=== PATIENT | female | born 1955 | race Caucasian/White ===

== ENCOUNTER 2022-04-19 09:43 | Outpatient (CLI) | payer OTHER, SELFPAY | END 2022-04-19 09:44 | disposition home or self-care (01) | LOC: INJ CL 09:44 | PROVIDERS: PCP Family Medicine; Visit Provider Family Medicine | DX: M54.16 Radiculopathy, lumbar region (principal); M51.36 Other intervertebral disc degeneration, lumbar region | CPT/HCPCS: 62323; J0702; Q9966 ==

== ENCOUNTER 2022-05-21 08:30 | Outpatient (RCR) | payer OTHER, SELFPAY | END 2022-08-27 14:32 | disposition home or self-care (01) | PROVIDERS: PCP Family Medicine; Visit Provider Family Medicine | DX: M25.562 Pain in left knee (principal); M70.62 Trochanteric bursitis, left hip; Z51.89 Encounter for other specified aftercare | CPT/HCPCS: 97110; 97112; 97140; 97530 ==

== ENCOUNTER 2022-06-14 08:31 | Outpatient (CLI) | payer OTHER, SELFPAY | END 2022-06-14 08:32 | disposition home or self-care (01) | PROVIDERS: PCP Family Medicine; Visit Provider Family Medicine | DX: M54.16 Radiculopathy, lumbar region (principal); M51.26 Other intervertebral disc displacement, lumbar region | CPT/HCPCS: 64483; J1100; Q9966 ==

== ENCOUNTER 2023-04-09 09:15 | Outpatient (RCR) | payer MEDICARE, BC, SELFPAY | END 2023-04-09 10:16 | disposition home or self-care (01) | PROVIDERS: PCP Family Medicine; Visit Provider Family Medicine | DX: M54.16 Radiculopathy, lumbar region (principal); M54.50 Low back pain, unspecified; M62.81 Muscle weakness (generalized); Z51.89 Encounter for other specified aftercare | CPT/HCPCS: 97110; 97161 ==

== ENCOUNTER 2023-10-22 07:12 | Outpatient (CLI) | payer MEDICARE, BC, SELFPAY ==
--- NOTE | 2023-10-22 07:15 | MR_ITS ---
[address] [address] Phone:?[phone] Fax:?[phone] Referring Physician Information: Norman Crowe M.D. [id number] [address] Phone:?[phone] Fax:?[phone] Patient:Violetta Hernandez D.O.B:?1955 Sex:?Female Phone:? [facility] MRN:?[id number] Exam Date:?10/22/2023 EXAM: MRI EXAMINATION OF THE RIGHT SHOULDER CLINICAL INFORMATION: Right shoulder pain. No history of surgery to this area. Evaluate rotator cuff tear. TECHNICAL INFORMATION: Coronal STIR as well as axial, sagittal and coronal PD and T2-weighted images acquired. No prior studies for comparison. INTERPRETATION: Bones: There is no Hill-Sachs impaction deformity. No other evidence for an occult fracture or osseous contusion. No other bone marrow edema pattern. Rotator Cuff: The supraspinatus tendon is intact without significant tendinopathy, and without tear or tendon retraction. The infraspinatus tendon is intact without tear or significant tendinopathy. The teres minor tendon is intact. The subscapularis tendon is intact. No appreciable rotator cuff muscle belly atrophy. Coracoacromial arch: There is no discrete subacromial osseous spur. The bony acromiohumeral interval is measuring 8 to 9 mm. There is no thickening identified of the coracoacromial ligament. Acromioclavicular joint: Mild/early AC joint DJD. No deformity of the underlying supraspinatus tendon. Minimal edema signal within the subacromial/subdeltoid bursa areas. Biceps tendon: The long head biceps tendon is intact and nondisplaced from the bicipital groove. No evidence for a tendon tear or any appreciable changes of tendinopathy. No evidence for tenosynovitis. Glenohumeral joint and labrum: No significant glenohumeral joint effusion. No discrete loose body within the joint. Osteochondral surfaces appear relatively preserved. No discrete SLAP tear. No other definite evidence for labral tear. There is no evidence for a paralabral cyst. There is abnormal thickening and signal heterogeneity of the inferior glenohumeral capsule, with adjacent changes of soft tissue edema signal. There is some apparent soft tissue thickening in the area of the rotator cuff interval. CONCLUSION: 1. MRI findings as would be in keeping with adhesive capsulitis, and please correlate clinically. 2. No evidence for a rotator cuff tendon tear or any appreciable tendinopathy. 3. Early AC joint DJD without abnormal narrowing of the acromiohumeral interval. Minimal subacromial/subdeltoid bursal inflammation. 4. Unremarkable and intact long head biceps tendon. 5. No appreciable glenohumeral osteoarthritis. KES Electronically signed on 10/22/2023 1:19:00 PM by Moody Chamorro M.D.
== END 2023-10-22 07:13 | disposition home or self-care (01) ==
LOC: MRI 07:12
PROVIDERS: PCP Family Medicine; Visit Provider Orthopaedic Surgery
DX: M25.511 Pain in right shoulder (principal); M75.01 Adhesive capsulitis of right shoulder; M75.51 Bursitis of right shoulder
CPT/HCPCS: 73221

== ENCOUNTER 2024-01-07 11:15 | Outpatient (RCR) | payer MEDICARE, BC, SELFPAY ==
--- NOTE | 2023-11-05 13:04 | PT.OPEX ---
PT [place] Outpatient Eval PT [facility] Outpatient Eval Start: 11/05/23 07:43 Freq: Status: Active Protocol: Document 11/05/23 07:44 ENM (Rec: 11/05/23 09:57 ENM [id number]) E-signed By Pinky Lynn, DPT Physical Therapy Outpatient Evaluation Insurance Information Recert Due Date 01/28/24 Insurance Name Medicare B Medical Diagnosis right shoulder pain Treating Diagnosis right arm pain, decreased shoulder ROM, decreased shoulder strength Referring MD Crowe Subjective Subjective Patient presents to PT for complaint of right shoulder pain. With certain movements it will shoot pain down her arm. Notices no discomfort with reaching forward or overhead. Will have the most discomfort sleeping on her side, reaching behind the back or twisting the arm up overhead. With getting her shirt off she has to do it slowly so it doesn't hurt her. Xray: These show no glenohumeral joint space narrowing or osteophytic spurring. No proximal migration of the humeral head. No obvious fracture or pathologic lesion. MRI of the right shoulder dated 10/22/2023 from [facility] shows the rotator cuff is intact. There is no subacromial/subdeltoid bursitis. There is some thickening and increased signal of the inferior glenohumeral ligaments and rotator interval, consistent with adhesive capsulitis. When it started: 3 months Describes it as: sharp when present Timing: randomly with movements Location: lateral shoulder sometimes in her triceps Irritability: high Severity: mod Pain Comments at its best: none at rest at its worse: 8-9/10 easing: ibuprofen aggravating: sleeping on her side, reaching behind the back Current Work Status Retired Objective Other/Pertinent Objective Shoulder AROM: Shoulder flexion: L 170 R 160 (soreness at end range) Abduction: L 173 R 172 ( soreness at end range) IR: L T7 R T10 right where pain starts ER: T3 B PROM Flexion R 150 + for pain Abduction R 165 IR at zero abduction L 68 R0 43 ER at zero abduction L 65 R 50 (at 90 degs L 61 R 45) supine HBH L 2 fingertips from acromion R 4 fingertips Strength: Shoulder flexion: 5/5 B Shoulder abduction: 4+/5 B Shoulder IR0: 5/5 B Shoulder ER0: L 4+/5 R 4-/5 ER at 90 L 4+/5 R 4-/5 IR at 90 4+/5 B Palpation/joint mobility: Posterior glide of GHJ: normal B Inferior glide of GHJ: normal B + for pain with palpation of supraspinatus and biceps tendon, ++ for pain at Tricep Special tests: neers + gauri cosby - Functional Test Performed & Score SPADI: pain 23/50 46% disability 18/80 22.5% 41/130 Assessment Assessment/Impression Patient is a 68 year old female presenting with 3+ month history of right shoulder pain. Their primary complaint is of lateral and posterior pain with quick movements such as reaching behind or rotating overhead. The pain has not changed in any way and is starting to make daily and recreational activities more difficult. Imaging was negative for fracture, rotator cuff tear but showed possible adhesive capsulitis. Upon assessment patients concordant pains brought on with active and passive shoulder IR and ER with limitations in both movements. Joint mobilizations were normal with equal mobility bilaterally. She displays weakness in external rotators compared to contralateral side . Special testing + for neers test. Patient most tender to palpation along triceps musculature. Due to degree of external rotation loss symptoms seem to be more likely early stage of frozen shoulder but with likely some subacromial pain syndrome symptoms as well. Keena would greatly benefit from skilled PT to address impairments stated above in order to perform all functional mobility and household duties without significant discomfort or difficulty. Primary Functional Limitations reaching behind the back, abd with ER positioning, playing pickleball, playing with her grandkids Plan of Care Rehabilitation Potential Fair Rehabilitation Potential Comments good-fair Physical Therapy Goals In 6-8 visits: 1. Patient will be IND with HEP and self management of symptoms 2. Patient will display an improvement in passive pain free shoulder IR and ER of 5 degs to improve ability for self cares/ADLS 3. Patient will display improved right shoulder ER strength to at least 4+/5 for return to recreational activities without significant difficulty 5. Patient will improve SPADI from 41 to 28 (MDC 13) to demonstrate improvements in QOL Coordination/Communication With Referral Source Treatment Plan/Direct Interventions Electrical Stimulation,Heat, Ice/Cold/Vasopneumatic,Joint Mobilization,Manual Therapy, Neuromuscular Re-ed,Self-Care/ Home Management,Therapeutic Activities,Therapeutic Exercises Frequency/Duration 1x a week for 6-8 weeks, as needed for 2-3 visits Patient Will Be Discharged From Therapy Completion of LTG(s), Independent w/HEP Evaluation Billing Untimed Code Treatment Minutes 36 Complexity Low Certification Information Initial Certification Date 11/05/23 Ending Certification Date 01/28/24 Provider Signature Shows Agreement With POC & Medical Necessity Physician Signature & Date Requested Please Sign/Date Here Physician Comment/Change : Physician NPI Number #
== END 2024-05-06 23:59 | disposition home or self-care (01) ==
PROVIDERS: PCP Family Medicine; Visit Provider Orthopaedic Surgery
DX: M25.511 Pain in right shoulder (principal); M79.601 Pain in right arm; Z74.09 Other reduced mobility; M75.01 Adhesive capsulitis of right shoulder; M75.51 Bursitis of right shoulder; Z51.89 Encounter for other specified aftercare
CPT/HCPCS: 97110; 97140; 97161

== ENCOUNTER 2024-06-21 16:45 | Outpatient (RCR) | payer MEDICARE, BC, SELFPAY | END 2024-10-01 09:42 | disposition home or self-care (01) | PROVIDERS: PCP Family Medicine; Visit Provider Student in an Organized Health Care Education/Training Program | DX: H81.03 Meniere's disease, bilateral (principal); R26.81 Unsteadiness on feet; Z51.89 Encounter for other specified aftercare | CPT/HCPCS: 97110; 97140; 97162 ==

== ENCOUNTER 2024-12-14 09:08 | Outpatient (CLI) | payer MEDICARE, BC, SELFPAY | END 2024-12-14 09:09 | disposition home or self-care (01) | LOC: INJ CL 09:10 | PROVIDERS: PCP Family Medicine; Visit Provider Family Medicine | DX: M54.16 Radiculopathy, lumbar region (principal); M51.26 Other intervertebral disc displacement, lumbar region | CPT/HCPCS: 64483; J1100; Q9966 ==

== ENCOUNTER 2025-02-01 08:26 | Outpatient (CLI) | payer MEDICARE, BC, SELFPAY | END 2025-02-01 08:27 | disposition home or self-care (01) | LOC: INJ CL 08:29 | PROVIDERS: PCP Family Medicine; Visit Provider Family Medicine | DX: M54.16 Radiculopathy, lumbar region (principal); M51.369 Other intervertebral disc degeneration, lumbar region without mention of lumbar back pain or lower extremity pain | CPT/HCPCS: 64483; J1100; Q9966 ==